=== PATIENT | male | born 2000 | race Caucasian/White ===

== ENCOUNTER 2022-06-26 12:26 | Outpatient (REF) | payer BC, MEDICAID, SELFPAY ==
[2022-06-26 14:09] LABS: MANUAL DIFF FLAG NO
[2022-06-26 14:15] LABS: Basophils Percent Auto 0.5 % (0-2); Eosinophils Absolute Auto 0.2 X10*3/uL (0.0-0.4); Eosinophils Percent Auto 3.5 % (0-4); Hematocrit 42.7 % (42.0-52.0); Hemoglobin 14.5 g/dl (14.0-18.0); Imm Gran Abs Auto 0.02 X10*3/uL (0.00-0.03); Imm Gran Pct Auto 0.4 % (0.0-0.4); Lymphocytes Absolute Auto 1.7 X10*3/uL (1.2-4.9); Lymphocytes Percent Auto 30.8 % (20-40); Mean Corpuscular Hemoglobin 28.5 pg (27.0-33.0); Mean Corpuscular Volume 84.1 fL (80.0-98.0); Mean Platelet Volume 11.3 fL (9.4-12.4); Monocytes Absolute Auto 0.6 X10*3/uL (0.1-1.2); Monocytes Percent Auto 10.6 % (2-11); Neutrophils Percent Auto 54.2 % (45-73); Platelet Count 200 X10*3/uL (160-400); Red Blood Count 5.08 X10*6/uL (4.60-5.80); Red Cell Distribution Width 12.7 % (11.0-16.0); White Blood Count 5.5 X10*3/uL (4.8-10.8)
[2022-06-26 14:33] LABS: Alanine Aminotransferase 25 U/L (0-40); Albumin Level 4.6 g/dL (3.5-5.0); Alkaline Phosphatase 64 U/L (39-117); Anion Gap 14 (12-20); Aspartate Amino Transferase 23 U/L (5-37); Bilirubin Total 0.4 mg/dL (0.0-1.0); Blood Urea Nitrogen 10 mg/dL (9-16); Calcium 9.6 mg/dL (8.4-10.2); Carbon Dioxide 28 mmol/L (22-29); Chloride 104 mmol/L (96-108); Cholesterol 159 mg/dL; Estimated Glomerular Filt Rate > 60; Glucose Fasting 100 mg/dL (60-99); HDL Cholesterol 56 mg/dL; LDL Cholesterol Calculated 91 mg/dl; Potassium 4.3 mmol/L (3.3-5.1); Sodium 142 mmol/L (135-145); Total Protein 7.1 g/dL (6.5-8.0); Triglycerides 61 mg/dL
[2022-06-26 14:52] LABS: TSH reflex Free T4 2.34 uIU/mL (0.32-4.0)
== END 2022-06-26 12:27 | disposition home or self-care (01) ==
LOC: HO.WFDLDS 12:26
PROVIDERS: Visit Provider Family Medicine
DX: Z00.00 Encounter for general adult medical examination without abnormal findings (principal)
CPT/HCPCS: 36415; 80053; 80061; 84443; 85025

== ENCOUNTER 2022-07-27 08:00 | Outpatient (RCR) | payer BC, MEDICAID, SELFPAY ==
--- NOTE | 2022-06-09 14:10 | MHC.PT.EP ---
[facility] [place] Office [place] [facility] [place] Office [address] Marilin Kaplan [address] [phone] F: [phone] F: [phone] F: [phone] F: [phone] Physical Therapy Plan of Care Date of Evaluation: Date of Surgery: Diagnosis: Other chest pain R07.89, M25.572 Pain in left ankle and joint of left foot signed by Tor Chavez on 04/13/22 Assessment: Pt is a RHD 22 y/o male, referred to PT from PCP for treatment of R07.89 Other chest pain, M25.572 Pain in left ankle and joints of the left foot. Pt exhibits decreased length of pec minor, tightness of upper trapezius/lat/teres mm, expresses pain in midline sternal chest region (exacerbated with strength training/exercise), decreased strength of scapular stabilizers and decreased knowledge how to strengthen posterior upper back/shoulders Pt exhibits decreased active range of motion (decreased PF and EV compared to R) of the left ankle following history of previous ankle sprain. Pt exhibits decreased tolerance for specific weight training tasks such as push-ups, bench press, and overhead tasks. Pt was advised to modify/refrain from bench press, advised to modify range for shoulder press (painfree stopping at neutral position of shoulder with lower weight), educated how to implement gentle pec minor stretching via doorway stretch and with use of a foam roller. He is challenged with scapular stability activities and tends to compensate/activate movements with his chest. Pt would benefit from attending skilled PT services at a frequency of 2x/week x 4-6 weeks to implement a neck/chest, ankle flexibility (including manual PROM/ROM L ankle) program with combo of progression towards dynamic core/hip/ankle scapular stabilization program. Pt issued written HEP sheets: pec minor stretch foam roller, doorway pec stretch, iso scap squeezes with foam roller against back doing posterior pelvic tilt x 5 sec hold (expresses fatigue post). Pt verbalizes understanding of education issued post eval. Pt states first priority is shoulder>ankle in order of operations for treatment goals. Frequency and Duration: The patient will be seen 2x/week x 4-6 weeks Short Term Goals: 1. AROM L ankle PF to 55 degrees. (IR: AROM 35 L, PROM 55). 2. Demonstrate L ankle EV 10 degrees AROM. (IR: 5 AROM, PROM 10). 3. Demonstrate improvement in pec minor length by 25%. 4. Implement scapular stabilization program. 5. Initiate HEP. Residential Goals: 1. Demonstrate symmetrical GH mobility with active elevation on the R. 2. I HEP with good joint protection measures. 3. Pt will demonstrate strength middle trap, lower trap 5/5 B. 4. Pt will demonstrate L SLS 20 seconds with good stability and dynamic balance. 5. Resume recreational exercise with good safety/jt protection. 6. Negative Tor test B for quads/hip flexor, IR (+) on B LE. Treatment Plan: Modalities to reduce pain, spasms and effusion. Manual therapy to restore motion and function. Therapeutic exercise to improve strength and flexibility. Neuromuscular re-education for posture and balance. Therapeutic activities to return to functional activities of daily living. Electronically signed by: Kathya Lea, PT, DPT Please sign and return to therapist. Thank you for your referral.
== END 2022-09-25 13:23 | disposition home or self-care (01) ==
LOC: HO.PTWFD 08:00
PROVIDERS: PCP Family Medicine; Visit Provider Family Medicine
DX: R07.89 Other chest pain (principal); M25.572 Pain in left ankle and joints of left foot
CPT/HCPCS: 97110; 97161; 97535

== ENCOUNTER 2022-07-28 10:33 | Outpatient (REF) | payer BC, MEDICAID, SELFPAY ==
[2022-07-28 14:32] LABS: Estimated Average Glucose 94 mg/dL; Hemoglobin A1c % 4.9 %
[2022-07-28 14:53] LABS: Anion Gap 17 (12-20); Blood Urea Nitrogen 17 mg/dL (9-16); Calcium 9.8 mg/dL (8.4-10.2); Carbon Dioxide 24 mmol/L (22-29); Chloride 103 mmol/L (96-108); Estimated Glomerular Filt Rate > 60; Glucose Fasting 88 mg/dL (60-99); Sodium 140 mmol/L (135-145)
== END 2022-07-28 10:34 | disposition home or self-care (01) ==
LOC: HO.WFDLDS 10:33
PROVIDERS: Visit Provider Family Medicine
DX: R73.01 Impaired fasting glucose (principal)
CPT/HCPCS: 36415; 80048; 83036

== ENCOUNTER 2023-08-02 15:58 | Outpatient (AMB) | payer BC, SELFPAY ==
--- NOTE | 2023-08-02 16:07 | MHC.PC.OV ---
Vital Signs 08/02/23 16:08 Height 5 ft 11 in Weight 191 lb BMI 26.6 BP 118/68 Blood Pressure Location Lt brachial Position Sitting Pulse 61 Pulse Source Pulse Oximeter Pulse Oximetry (%) 99 Oxygen Delivery Method Room Air Intake Visit Reasons: CPE with f/u labs and health maintenance Intake Note: Patient is here for his physical today. 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 No recent labs to review. He reports tightness on his R hip and R chest. [facility] Surgical History [place] teeth removed Family History (Updated 08/02/23 @ 16:20 by Shakila Miller [facility]) Father Stroke Other Mental health disorder Substance abuse Social History Housing: Apartment Patient Tobacco Use Status: Never used Tobacco e-Cigarette/Vaping Use: Never Used Second Hand Smoke Exposure: No service: No Current occupational status: employed Current occupation: structured cabling technician Current occupational exposures/hazards: No Cognitive needs: No Hearing needs: No Vision needs: No Questionnaire PHQ-9 Over the last 2 weeks, how often have you been bothered by any of the following problems? 1. Little interest or pleasure in doing things: several days 2. Feeling down, depressed, or hopeless: not at all 3. Trouble falling or staying asleep, or sleeping too much: more than half the days 4. Feeling tired or having little energy: several days 5. Poor appetite or overeating: several days 6. Feeling bad about yourself - or that you are a failure or have let yourself or your family down: not at all 7. Trouble concentrating on things, such as reading the newspaper or watching television: not at all 8. Moving or speaking so slowly that other people could have noticed. Or the opposite - being so fidgety or restless that you have been moving around a lot more than usual: several days 9. Thoughts that you would be better off or of hurting yourself in some way: not at all Total score: 6 Source: Developed by Drs. Austin Balbuena, Qing Weller, Justino Nguyen and colleagues, with an educational hardik from [employer]. Thrive Questionnaire I am a: Patient What is your living situation today?: I have a steady place to live Within the past 12 months, did the food you bought not last and you didn't have the money to get more?: Never true Within the past 12 months, did you worry whether your food would run out before you got money to buy more?: Never true Do you have trouble paying for medicines?: No Do you have trouble getting transportation to medical appointments?: No Do you have trouble paying your heating and electricity bill?: No Do you have trouble taking care of your child, family member or friend?: No Do you have trouble with day-to-day activities such as bathing, preparing meals, shopping, managing finances, etc.?: No Are you currently unemployed and looking for a job?: No Are you interested in more education?: No AUDIT C Alcohol Use Questionnaire (AUDIT-C) 1. How often do you have a drink containing alcohol?: 2-3 times a week 2. How many drinks containing alcohol do you have on a typical day when you are drinking?: 1 or 2 3. How often do you have six or more drinks on one occasion?: Less than monthly Total Score: 4 YONATAN-7 AMB Questionnaire YONATAN-7 Date YONATAN - 7 assessed: 08/02/23 Feeling nervous, anxious, or on edge: 1 = Several days Not being able to stop or control worryin = Not at all Worrying too much about different things: 1 = Several days Trouble relaxin = Several days Being so restless that it is hard to sit still: 1 = Several days Becoming easily annoyed or irritable: 1 = Several days Feeling afraid as if something awful might happen: 0 = Not at all Total YONATAN-7 score (0-4 normal; 5-9 mild; 10-14 moderate; 15-21 severe): 5 Source: Developed by Drs. Austin Balbuena, Qing Weller, Justino Nguyen and colleagues, with an educational hardik from [employer] [facility]. Review of Systems Const Denies chills, Denies fatigue, Denies fever(s), Denies headache(s) and Denies weakness Eyes Denies change in vision ENT Denies dizziness, Denies headache(s), Denies hearing loss, Denies nasal congestion, Denies sinus pain, Denies sinus pressure and Denies sore throat Card Denies chest pain, Denies lightheadedness, Denies dyspnea and Denies other (palpitations) Resp Denies cough, Denies dyspnea and Denies wheezing GI Denies abdominal pain, Denies melena, Denies hematochezia, Denies change in bowel habits, Denies dyspepsia and Denies nausea Denies hematuria and Denies dysuria Musc Denies abnormal gait, Denies myalgias, Denies arthralgias, Denies numbness and Denies tingling Skin/Breast Denies rash, Denies unusual bruising and Denies wounds Neuro Denies abnormal gait, Denies dizziness, Denies headache(s), Denies memory loss, Denies numbness, Denies Sensory deficit (Neuro), Denies tingling and Denies weakness Psych Denies anxiety, Denies depression and Denies memory loss Endo Denies cold intolerance, Denies fatigue, Denies heat intolerance, Denies polydipsia and Denies polyuria Silviano/Lymph Denies easy bleeding and Denies easy bruising Aller/Immun Denies wheezing Physical exam (Primary Care) Vital Signs: Last Vital Signs Pulse 61 08/02/23 16:08 BP 118/68 08/02/23 16:08 Pulse Ox 99 08/02/23 16:08 Oxygen Delivery Method Room Air 08/02/23 16:08 BMI result Body Mass Index 26.6 Tobacco/Smoking Status: Tobacco use Status Tobacco use date assessed 08/02/23 08/02/23 16:29 Patient Tobacco Use Status Never used Tobacco 08/02/23 16:09 e-Cigarette/Vaping Use Never Used 08/02/23 16:09 PHQ-9: PHQ-9 Score PHQ-9: Total score 6 08/02/23 16:29 Const General: no acute distress, well developed, alert and awake Nutritional Appearance: well nourished Orientation/consciousness: patient oriented x3 [facility] Head: Yes normocephalic and Yes atraumatic Ears: hearing grossly normal bilaterally and TM's normal bilaterally General nose exam: Normal external nose present and Normal nares present Mouth: Normal oral and palatal mucosa present and moist mucous membranes Teeth and gingiva: dentition normal Throat: Yes posterior oropharynx normal Eyes General: appearance normal, both eyes and all related structures Pupils: Equal, round and reactive pupils present and Pupil accommodation reflex normal EOM: EOMs intact bilaterally Neck Neck: Yes normal visual inspection, Yes no lymphadenopathy and Yes trachea midline Thyroid: Thyroid normal Carotids: no bruits Lymphatic: no lymphadenopathy noted Chest Chest palpation & inspection: normal inspection of the chest Resp Effort & Inspection: normal respiratory effort Auscultation: clear to auscultation bilaterally Cardio Rate: regular rate Rhythm: regular rhythm Heart sounds: S1 normal heart sound present, S2 normal heart sound present, no gallops, no murmurs and no rubs Bruits: no abdominal aortic bruits and no carotid bruits GI Palpation (GI): No Abdominal aortic bruit present, Soft to palpation, nontender, No hepatosplenomegaly present and No Rebound tenderness present Auscultation: normal bowel sounds General: Yes no CVA tenderness Back/Spine/Pelvis Back: no CVA tenderness Cervical Spine: cervical ROM normal and No Cervical spine tenderness Thoracic/Lumbar Spine: thoraco-lumbar ROM normal, No pain with thoraco-lumbar ROM, No thoracic spinal tenderness and No lumbar spinal tenderness Skin Lesions: no lesions Rashes: no rashes Trauma: no lacerations or abrasions Wounds: no wounds Nails: normal Neuro General: patient oriented x3 Cranial nerves: Yes Equal, round and reactive pupils present Cognition (Neuro): normal cognition Gait exam (Neuro): Normal gait present Motor exam (neuro): 5/5 motor strength present throughout Sensory Exam: No Sensory deficit (Neuro) Deep tendon reflexes (DTR's): Right patellar reflex intensity grade: 2+ and Left patellar reflex intensity grade: 2+ Extrem General: Yes normal to inspection and No edema Psych Appearance: grossly normal Affect: normal affect Attitude: cooperative Thought process: Normal thought process present Assessment and Plan Assessment & Plan (1) Adult general medical exam: Code(s): Z00.00 - Encounter for general adult medical examination without abnormal findings Plan: 23-year-old?male?presents?for?complete?physical?exam Encouraged?healthy?diet?with?active?lifestyle?and?plenty?of?exercise (2) Elevated fasting glucose: Code(s): R73.01 - Impaired fasting glucose Plan: Patient?was?uncertain?if?he?had?had?a?proper?fast?and?repeat?fasting?blood?sugar?as?well?as?A1c?were?within?normal?limits. (3) Constipation: Code(s): K59.00 - Constipation, unspecified Plan: Hydrate?well Trial?soluble?fiber (4) Chest wall pain: Code(s): R07.89 - Other chest pain Plan: Chest?wall?pain?and?hip?and?ankle?pain.??He?had?benefitted?from?physical?therapy?in?the?past. Referred?to?physical?therapy?again (5) Right hip pain: Code(s): M25.551 - Pain in right hip Plan: As?above Orders: Orders PT Evaluation and Treatment Today M25.551 - Pain in right hip, M25.572 - Pain in left ankle and joints of left foot, R07.89 - Other chest pain Medications: New calcium polycarbophil (FiberCon) 625 mg PO DAILY 30 tabs 2RF 30 days Coding Level of Care Code Est Pt Level 3 (97840) Est Pt Prev Care 18-39y(32170) Diagnoses Adult general medical exam Z00.00 Elevated fasting glucose R73.01 Constipation K59.00 Chest wall pain R07.89 Right hip pain M25.551
[2023-08-02 16:08] VITALS: BP 118/68; PULSE 61; O2SAT 99; BMI 26.6
== END 2023-08-02 17:14 | disposition home or self-care (01) ==
PROVIDERS: PCP Family Medicine; Visit Provider Family Medicine
DX: Z00.00 Encounter for general adult medical examination without abnormal findings (principal); R73.01 Impaired fasting glucose; K59.00 Constipation, unspecified; R07.89 Other chest pain; M25.551 Pain in right hip
CPT/HCPCS: 99395

== ENCOUNTER 2023-08-31 07:34 | Outpatient (REF) | payer BC, SELFPAY ==
[2023-08-31 11:31] LABS: Appearance Urine Clear; Color Urine Yellow; Glucose Urine UA Negative (Negative); Leukocyte Esterase Urine Negative (Negative); Nitrite Urine Negative (Negative); PH 5.5 (5.0-9.0); Specific Gravity - Urine >= 1.030 (1.005-1.025); Urine Blood Negative (Negative); Urine Ketones Negative (Negative); Urine Protein Negative (Neg-Trace)
[2023-08-31 12:21] LABS: Alanine Aminotransferase 13 U/L (0-40); Alkaline Phosphatase 48 U/L (39-117); Anion Gap 13 (12-20); Aspartate Amino Transferase 17 U/L (5-37); Bilirubin Total 0.7 mg/dL (0.0-1.0); Blood Urea Nitrogen 13 mg/dL (9-16); Calcium 9.6 mg/dL (8.4-10.2); Carbon Dioxide 28 mmol/L (22-29); Chloride 103 mmol/L (96-108); Cholesterol 146 mg/dL (<200); Estimated Glomerular Filt Rate > 60; Glucose Fasting 85 mg/dL (60-99); HDL Cholesterol 53 mg/dL (>40); LDL Cholesterol Calculated 84 mg/dL (<100); Potassium 3.6 mmol/L (3.3-5.1); Sodium 140 mmol/L (135-145); Total Protein 7.5 g/dL (6.5-8.0); Triglycerides 46 mg/dL (<150)
== END 2023-08-31 07:35 | disposition home or self-care (01) ==
LOC: HO.WFDLDS 07:34
PROVIDERS: Visit Provider Family Medicine
DX: Z00.00 Encounter for general adult medical examination without abnormal findings (principal); R73.01 Impaired fasting glucose
CPT/HCPCS: 36415; 80053; 80061; 81003; 84443

== ENCOUNTER → 2023-09-06 13:22 | Outpatient (AMB) | payer BC, SELFPAY ==
--- NOTE | 2023-09-06 09:14 | MHC.PC.OV ---
Intake Visit Reasons: f/u CPE-labs Intake Note: Patient is following up on blood work today. Allergies shellfish Allergy (Severe, Uncoded 08/02/23 16:13) Anaphylaxis tree nuts Allergy (Severe, Uncoded 08/02/23 16:13) Anaphylaxis Tobacco use date assessed: 09/06/23 HPI f/u CPE-labs HPI Details 23 y/o male presents to f/u CPE-labs via telemedicine. Labs were drawn 08/31/23. Reviewed labs with pt. Triglycerides 46. TC 146. LDL 84. HDL 53. PFSH Surgical History [place] teeth removed Family History Father Stroke Other Mental health disorder Substance abuse Social History Housing: Apartment Patient Tobacco Use Status: Never used Tobacco e-Cigarette/Vaping Use: Never Used Second Hand Smoke Exposure: No service: No Current occupational status: employed Current occupation: [employer] Current occupational exposures/hazards: No Cognitive needs: No Hearing needs: No Vision needs: No Questionnaire YONATAN-7 AMB Questionnaire YONATAN-7 Date YONATAN - 7 assessed: 08/02/23 Source: Developed by Drs. Austin Balbuena, Qing Weller, Justino Nguyen and colleagues, with an educational hardik from [employer]. Review of Systems Const Denies chills, Denies fatigue, Denies fever(s), Denies headache(s) and Denies weakness ENT Denies dizziness and Denies headache(s) Card Denies dyspnea Resp Denies cough, Denies dyspnea, Denies wheezing and Denies other (shortness of breath) Musc Denies numbness and Denies tingling Neuro Denies dizziness, Denies headache(s), Denies numbness, Denies tingling and Denies weakness Psych Denies anxiety and Denies depression Endo Denies fatigue Aller/Immun Denies wheezing Physical exam (Primary Care) Tobacco/Smoking Status: Tobacco use Status Tobacco use date assessed 09/06/23 09/06/23 09:16 Patient Tobacco Use Status Never used Tobacco 09/06/23 09:16 e-Cigarette/Vaping Use Never Used 09/06/23 09:16 Telehealth Telehealth Location of provider rendering services: practice address Location of patient: address on file Patient Identification confirmed using: Name, : Yes Telehealth method: voice only Patient verbally consented to treatment: Yes Patient verbally consented to billing insurance company: Yes Patient informed of any privacy concerns related to visit: Yes Minutes spent on Phone/Video with Pt.: 4 Assessment and Plan Assessment & Plan (1) Elevated fasting glucose: Code(s): R73.01 - Impaired fasting glucose Plan: No?further?evidence?of?elevated?fasting?blood?sugar. (2) Right hip pain: Code(s): M25.551 - Pain in right hip Plan: referred to pt (3) Left ankle pain: Code(s): M25.572 - Pain in left ankle and joints of left foot Plan: As?above (4) Chest wall pain: Code(s): R07.89 - Other chest pain Plan: As?above Orders: Orders Lipid Panel 09/06/23 Z00.00 - Encounter for general adult medical examination without abnormal findings TSH reflex Free T4 09/06/23 Z00.00 - Encounter for general adult medical examination without abnormal findings Comprehensive [place]. Panel Fast 09/06/23 Z00.00 - Encounter for general adult medical examination without abnormal findings Microalbumin, Random (w Creat) 09/06/23 I10 - Essential (primary) hypertension UA and rflx microscopic 09/06/23 Z00.00 - Encounter for general adult medical examination without abnormal findings Coding Level of Care Code Tele Est Pt Level 2 (88613) Diagnoses Elevated fasting glucose R73.01 Right hip pain M25.551 Left ankle pain M25.572 Chest wall pain R07.89
== END | disposition home or self-care (01) ==
LOC: HO.HMGFM 09:17
PROVIDERS: PCP Family Medicine; Visit Provider Family Medicine
DX: R73.01 Impaired fasting glucose (principal); M25.551 Pain in right hip; M25.572 Pain in left ankle and joints of left foot; R07.89 Other chest pain
CPT/HCPCS: 99441